=== PATIENT | female | born 1995 | race Caucasian/White ===

== ENCOUNTER 2023-04-05 15:43 | Inpatient (IN) | payer MEDICAID, OTHER ==
[~2023-04-05] VITALS: Ht 160 cm; Wt 66.2 kg
[2023-04-05 17:05] VITALS: BP_SYST 104; PULSE 85; RESP 18; TEMP 99.1
[2023-04-05] MEDS ORDERED: NALBUPHINE HCL 10 MG/ML AMP IVP PRN (17:45)
[2023-04-05] MEDS ORDERED: LR 1,000 ML IV ONE (17:45)
[2023-04-05 18:43] LABS: BASOPHILS % (AUTO) 0.3 % (0.0-2.0); EOSINOPHILS # (AUTO) 0.1 K/uL (0.0-0.4); EOSINOPHILS % (AUTO) 0.8 % (0.0-4.0); HEMATOCRIT 28.4 % (36-48); HEMOGLOBIN 9.3 g/dL (12.0-16.0); LYMPHOCYTES % (AUTO) 18.3 % (20.5-51.5); MEAN CORPUSCULAR HEMOGLOBIN 26 pg (27-31); MEAN CORPUSCULAR HGB CONC 33 % (32-36); MEAN CORPUSCULAR VOLUME 78 fL (79.0-98.0); MONOCYTES # (AUTO) 0.9 K/uL (0.0-1.0); MONOCYTES % (AUTO) 8.3 % (1.7-9.3); NEUTROPHILS # (AUTO) 7.7 K/uL (1.8-7.7); NEUTROPHILS % (AUTO) 72.3 % (40.0-70.0); PLATELET COUNT (AUTO) 227 K/uL (130-430); RED BLOOD CELL COUNT(AUTO) 3.66 MIL/uL (4.2-6.2); RED CELL DISTRIBUTION WIDTH 14.6 % (9.0-15.0); WHITE BLOOD COUNT (AUTO) 10.7 K/uL (4.8-10.8)
[2023-04-05] MEDS ORDERED: HYDROmorphone 1 MG/ML INJ. CARTRIDGE IVP PRN (20:30)
[2023-04-05] MEDS ORDERED: OXYTOCIN/0.9 % SODIUM CHLORIDE 1,000 ML IV SCH (20:30)
[2023-04-05] MEDS ORDERED: TERBUTALINE SULFATE 1 MG/ML VIAL SUBCUT ONE (20:30)
[2023-04-05] MEDS: LR 1,000 ML IV SCH (21:36)
[2023-04-05] MEDS ORDERED: fentaNYL CITRATE/PF 100 MCG/2 ML AMP ONE (21:56)
[2023-04-05] MEDS ORDERED: ROPIVACAINE HCL/PF 0.2% 200 ML ONE (21:56)
[2023-04-05] MEDS ORDERED: NALOXONE HCL 0.4 MG/ML AMP (NARCAN) IVP PRN (23:00)
[2023-04-05] MEDS ORDERED: FENT2mCg/mL-ROPIVA0.2%/NS EPID 200 ML EP SCH (23:00)
[2023-04-05] MEDS ORDERED: DIPHENHYDRAMINE INJ 50 MG/ML VIAL IVP PRN (23:00)
[2023-04-05] MEDS ORDERED: ePHEDrine sulfate 50 MG/ML VIAL IVP ONE (23:00)
[2023-04-05] MEDS ORDERED: ONDANSETRON HCL 4 MG/2 ML VIAL IVP PRN (23:00)
[2023-04-05] MEDS ORDERED: ePHEDrine sulfate 50 MG/ML VIAL ONE (23:13)
[2023-04-06] MEDS: LR 1,000 ML IV SCH ×2 (04:30→11:59)
[2023-04-06] MEDS ORDERED: RHO(D) IMMUNE GLOBULIN/MALTOSE 1500 UNITS/1.3 ML (WINHRO) IM PRN (16:45)
[2023-04-06] MEDS ORDERED: MEASLES,MUMPS&RUBELLA VACC/PF 12500 UNIT/0.5 ML VIAL SUBQ PRN (16:45)
[2023-04-06] MEDS ORDERED: LANOLIN 7 GM OINT. TP PRN (16:45)
[2023-04-06] MEDS ORDERED: TEMAZEPAM 15 MG CAPSULE PO PRN (16:45)
[2023-04-06] MEDS ORDERED: OXYTOCIN/0.9 % SODIUM CHLORIDE 1,000 ML IV SCH (16:45)
[2023-04-06] MEDS ORDERED: DIPHTH,PERTUSS(ACELL),TET VAC 0.5 ML VIAL (Tdap) I.M. PRN (16:45)
[2023-04-06] MEDS ORDERED: WITCH HAZEL LEAF 1 MED.PAD MED.PAD TP PRN (16:45)
[2023-04-06] MEDS ORDERED: HYDROCORTISONE 0.5% CREAM 28.4 GM CREAM.GM. TP PRN (16:45)
[2023-04-06] MEDS ORDERED: OXYTOCIN/0.9 % SODIUM CHLORIDE 1,000 ML IV ONE (16:45)
[2023-04-06] MEDS ORDERED: DERMOPLAST SPRAY TP PRN (16:45)
[2023-04-06] MEDS ORDERED: ANUSOL 1 EA SUPP.RECT (PREPARATION H) RC PRN (16:45)
[2023-04-06] MEDS: IBUPROFEN 600 MG TABLET PO SCH ×2 (18:00→20:39)
[2023-04-06] MEDS: SENNOSIDES/DOCUSATE SODIUM 1 TAB TABLET(SENOKOT-S) PO SCH (20:41)
[2023-04-06] MEDS: OXYCODONE/ACETAMINOPHEN 5-325 TABLET PO PRN (22:03)
[2023-04-07] MEDS: IBUPROFEN 600 MG TABLET PO SCH ×3 (02:02→20:32)
[2023-04-07 05:45] LABS: HEMATOCRIT 23.8 % (36-48); HEMOGLOBIN 7.7 g/dL (12.0-16.0)
[2023-04-07] MEDS: LR 1,000 ML IV SCH ×2 (06:06→10:12)
[2023-04-07] MEDS: OXYCODONE/ACETAMINOPHEN 5-325 TABLET PO PRN ×4 (06:20→21:19)
[2023-04-07] MEDS ORDERED: SEVOFLURANE 15 MIN GAS INH ONE (07:55)
[2023-04-07] MEDS ORDERED: LIDOCAINE/EPI 1% 1:100000 20 ML VIAL ONE (07:55)
[2023-04-07] MEDS ORDERED: BUPIVACAINE /PF 0.5% 30 ML VIAL ONE (07:55)
[2023-04-07] MEDS ORDERED: PROPOFOL 200MG/ 20ML VIAL (DIPRIVAN) IV ONE (07:55)
[2023-04-07] MEDS ORDERED: MIDAZOLAM HCL/PF 2 MG/2 ML SYRINGE ONE (07:55)
[2023-04-07] MEDS ORDERED: fentaNYL CITRATE/PF 100 MCG/2 ML AMP ONE (07:55)
[2023-04-07] MEDS ORDERED: METOCLOPRAMIDE HCL 10 MG/2 ML VIAL IVP PRN (08:30)
[2023-04-07] MEDS ORDERED: ONDANSETRON HCL 4 MG/2 ML VIAL IVP PRN (08:30)
[2023-04-07] MEDS ORDERED: fentaNYL CITRATE/PF 100 MCG/2 ML AMP IVP PRN ×2 (08:30)
[2023-04-07] MEDS ORDERED: ACETAMINOPHEN I.V. 1000 MG 100 ML IV ONE (08:31)
[2023-04-07 08:54] VITALS: BP_SYST 102
[2023-04-07] MEDS ORDERED: DOCUSATE SODIUM 100 MG CAPSULE PO SCH (09:00)
[2023-04-07] MEDS: SENNOSIDES/DOCUSATE SODIUM 1 TAB TABLET(SENOKOT-S) PO SCH (20:33)
[2023-04-08] MEDS: OXYCODONE/ACETAMINOPHEN 5-325 TABLET PO PRN ×3 (01:34→12:15)
[2023-04-08] MEDS: IBUPROFEN 600 MG TABLET PO SCH ×3 (01:35→14:50)
[2023-04-09 02:06] LABS: RUBELLA AB, IgG <0.90 index (Immune >0.99)
[2023-04-09 03:06] LABS: HEPATITIS B SURFACE AG Negative (Negative)
== END 2023-04-08 19:05 | disposition home or self-care (01) | DRG 541 ==
LOC: OBSVTOIN 15:43 → SPU 15:43
PROVIDERS: ADMIT Obstetrics & Gynecology; ATTEND Obstetrics & Gynecology
PROC: 10E0XZZ Delivery of Products of Conception, External Approach (ICD-10-PCS; principal; 2023-04-06)
PROC: 3E033VJ Introduction of Other Hormone into Peripheral Vein, Percutaneous Approach (ICD-10-PCS; 2023-04-06)
PROC: 3E0R3BZ Introduction of Anesthetic Agent into Spinal Canal, Percutaneous Approach (ICD-10-PCS; 2023-04-06)
PROC: 00HU33Z Insertion of Infusion Device into Spinal Canal, Percutaneous Approach (ICD-10-PCS; 2023-04-06)
PROC: 0UB70ZZ Excision of Bilateral Fallopian Tubes, Open Approach (ICD-10-PCS; 2023-04-07)
DX: O80 Encounter for full-term uncomplicated delivery (principal); Z37.0 Single live birth; R71.0 Precipitous drop in hematocrit; Z30.2 Encounter for sterilization; Z3A.39 39 weeks gestation of pregnancy
CPT/HCPCS: 36415; 81002; 85018; 85025; 86592; 86762; 86780; 86886; 86900; 86901; 87340; 87536; 88302; 94760; J0131; J2590; J2704; J3010; J3465; J3490; J7120